=== PATIENT | female | born 1990 | race American Indian/Alaskan Native ===

== ENCOUNTER 2018-01-07 15:44 | Emergency (ER) | payer MEDICAID ==
[2018-01-07 15:56] VITALS: BP 121/71
[2018-01-07] MEDS ORDERED: ZOFRAN IV ONE (16:52)
[2018-01-07] MEDS ORDERED: TORADOL IV ONE (16:52)
[2018-01-07] MEDS ORDERED: PEPCID IV ONE (16:52)
[2018-01-07] MEDS ORDERED: NACL 0.9% 1000 ML 1,000 ML IV ONE (16:52)
--- NOTE | 2018-01-07 16:57 | Emergency Department Report ---
Blank Doc - Documentation Documentation: 27 yo female with no significant past medical history presents to the hospital complaining of nausea, vomiting, diarrhea since this morning as well as vaginal spotting for the past 2 weeks. Patient ate [place] food last night. She's vomited greater than 15 times today and had a great of 4 episodes of diarrhea. She denies melena, hematochezia, hematemesis, or fever. She complains of epigastric pain and lower abdominal pain. Patient also has significant complaint of pelvic pain and vaginal bleeding after sexual intercourse 2 weeks ago. Prior to the patient has not had sex in 2 years. Immediately after sex she had heavy vaginal bleeding that now has been persistently spotting. She has IUD 2 years (supposed to last for 5 years) and therefore does not typically have any periods. She denies vaginal discharge other than spotting generalized abd tenderness including suprapubic area labs/UA ordered us pelvic/transvag to verfy IUD placement meds ordered [facility] to evaluate
[2018-01-07 17:27] LABS: Basophils # (Auto) 0.1 K/mm3 (0.0-0.1); Basophils % (Auto) 1.3 % (0.0-1.8); Eosinophils # (Auto) 0.1 K/mm3 (0.0-0.4); Eosinophils % (Auto) 0.9 % (0.0-4.3); Hematocrit 35.2 % (30.3-42.9); Hemoglobin 11.1 gm/dl (10.1-14.3); Lymphocytes # (Auto) 1.8 K/mm3 (1.2-5.4); Lymphocytes % (Auto) 24.5 % (13.4-35.0); Mean Corpuscular HGB Conc 32 % (30-34); Mean Corpuscular Volume 81 fl (79-97); Monocytes # (Auto) 0.3 K/mm3 (0.0-0.8); Monocytes % (Auto) 4.1 % (0.0-7.3); Platelet Count 306 K/mm3 (140-440); Red Blood Count 4.33 M/mm3 (3.65-5.03); Red Cell Distribution Width 17.1 % (13.2-15.2)
[2018-01-07 17:29] LABS: Mean Corpuscular Hemoglobin 26 pg (28-32)
[2018-01-07 17:42] LABS: Alanine Aminotransferase 7 units/L (7-56); Albumin 4.1 g/dL (3.9-5); BUN/Creatinine Ratio 8; Blood Urea Nitrogen 4 mg/dL (7-17); Calcium 9.4 mg/dL (8.4-10.2); Hemolysis Index 38; Lipase 11 units/L (13-60)
[2018-01-07 18:02] LABS: Bilirubin,Urine NEG (Negative); Blood,Urine NEG (Negative); Color,Urine Yellow (Yellow); Mucus,Urine 3+ /HPF
--- NOTE | 2018-01-07 18:54 | Ultrasound Report ---
FINAL REPORT PROCEDURE: US PELVIC COMPLETE TECHNIQUE: Real-time transabdominal sonography in multiple planes of pelvis was performed with image documentation. This examination was performed without Doppler. Vascular abnormalities, including ovarian torsion, will not be detectable without Doppler evaluation. CPT 39697 HISTORY: vag spotting, pelvic pain, iud COMPARISON: No prior studies are available for comparison. FINDINGS: The uterus is anteverted measuring 7.3 x 3.8 x 5.6 centimeter. Echogenic linear foci is seen in the endometrial canal consistent with an IUD. Uterus is suboptimally visualized as the urinary bladder was empty. No definite uterine masses are seen. Right and left ovaries are visualized and show no focal abnormalities of the exception of a 1.6 centimeters cystic area in the right ovary suggesting a maturing follicle. The right ovary measures 3.2 x 2.5 x 2.5 centimeter. The left ovary measures 3.1 x 2.6 x 2.4 centimeters. IMPRESSION: Anteverted uterus. IUD visualized. No uterine masses are seen. Uterus is suboptimally seen as the urinary bladder was empty. Transvaginal scanning is to follow. Small follicle suspected right ovary. Ovaries are otherwise unremarkable.
--- NOTE | 2018-01-07 18:57 | Ultrasound Report ---
FINAL REPORT PROCEDURE: Transvaginal pelvic ultrasound with Doppler imaging. TECHNIQUE: Real-time transvaginal sonography in multiple planes of the pelvis was performed with image documentation. Grayscale, color flow Doppler imaging and velocity spectral waveform analysis of the ovaries was employed (duplex imaging). CPT 33926 and 72607 HISTORY: vag spotting, pelvic pain, iud COMPARISON: No prior studies are available for comparison. FINDINGS: Echogenic foci seen in the endometrial canal consistent with an IUD. Uterus is otherwise unremarkable measuring 7.3 x 3.8 x 5.6 centimeter. No uterine masses are identified. No fluid is seen in the endometrial canal or in the cul-de-sac. Visualized portions of the endometrial stripe measure up to 5.3 millimeter in thickness. Simple appearing cyst visualized in the right ovary measuring 1.9 centimeters suggesting a maturing follicle. The right and left ovaries otherwise are unremarkable. No abnormal adnexal masses are seen. Right ovary measures 3.2 x 2.5 x 2.5 centimeter. Left ovary measures 3.1 x 2.6 x 2.4 centimeters. Small peripheral follicles seen in the left ovary. Arterial flow demonstrated in both ovaries with Doppler imaging. Venous flow was not recorded. IMPRESSION: IUD visualized in the endometrial canal. Maturing dominant follicle visualize right ovary.. No other abnormalities are seen.
--- NOTE | 2018-01-07 18:58 | Emergency Department Report ---
Vomiting/Diarrhea - HPI Chief Complaint: Nausea/Vomiting/Diarrhea Stated Complaint: N&V & DIARRHEA Time Seen by Provider: 01/07/18 16:44 Duration: 2 weeks for vaginal spotting (for nausea and vomiting) Severity: moderate Nausea/Vomiting Severity: Moderate Diarrhea Severity: Mild Pain Location: Suprapubic Pain Severity: Mild Symptoms: Yes Able to Tolerate Fluids, No Watery Diarrhea, No Bloody diarrhea, No Fever, No Recent Unusual Foods, No Recent Untreated Water, No Recent use of Antibiotics, No Family w/ Similar Symptoms, No Contacts w/ Similar Symptoms, No Rash, No Hematuria, No Recent URI Symptoms Other History: This is a 27-year-old -[place] female that presents with nausea, vomiting, and diarrhea since this morning as well as vaginal spotting for the past 2 weeks. Patient ate [place] food last night and vomiting since. She reports vomiting and diarrhea more than 4 times. Patient states being abstinence for 1 year to have intercourse 2-3 weeks ago with ex-boyfriend and has an discomfort every since. Reports pain in lower abdomen and vaginal spotting. She is concerned her IUD was placed causing suprapubic pelvic pain. She has had IUD for 2 years without complication. Immediately after sex she had heavy vaginal bleeding that now has been persistently spotting. Denies melena, hematochezia, hematemesis, or fever. ED Review of Systems ROS: Stated complaint: N&V & DIARRHEA Other details as noted in HPI Constitutional: denies: chills, fever Respiratory: denies: cough, shortness of breath, wheezing Cardiovascular: denies: chest pain, palpitations Gastrointestinal: abdominal pain (suprapubic pain), nausea, vomiting, diarrhea Genitourinary: denies: urgency, dysuria, frequency, discharge Skin: denies: rash, lesions Neurological: denies: headache, weakness, paresthesias Psychiatric: denies: anxiety, depression ED Past Medical Hx - Past Medical History Hx Hypertension: No Hx Diabetes: No Hx Deep Vein Thrombosis: No Hx Renal Disease: No Hx Sickle Cell Disease: No Hx Seizures: No Hx Asthma: No Hx HIV: No - Surgical History Additional Surgical History: D&C - Social History Smoking Status: Never Smoker Substance Use Type: None - Medications Home Medications: Home Medications Medication Instructions Recorded Confirmed Last Taken Type HYDROcodone/APAP 5-325 [[place] 1 each PO Q6HR PRN #15 tablet 04/04/13 Unknown Rx 5/325 mg] Penicillin Vk [Veetids TAB] 500 mg PO QID #40 tablet 04/04/13 Unknown Rx Vits96/Iron Fum/Folic 1 tab PO DAILY 04/04/13 04/04/13 04/03/13 11:00 History [ Tablet] metroNIDAZOLE [Metronidazole] 500 mg PO BID 5 Days #10 tablet 01/07/18 Unknown Rx Vomiting Diarrhea Exam - Exam General: Vital signs noted. No distress. Alert and acting appropriately. HEENT: Yes Moist Mucous Membranes, No Pharyngeal Erythema, No Pharyngeal Exudates, No Rhinorrhea, No Conjuctival Injection, No Frontal Tenderness, No Maxillary Tenderness Neck: No Adenopathy, No Rigidity Lungs: Yes Clear Lung Sounds, Yes Good Air Exchange, No Wheezes, No Stridor, No Cough, No Nasal Flaring, No Retractions, No Use of Accessory Muscles Heart exam: Regular: Yes, Murmur: No, Tachycardia: No Abdomen: Tenderness: Yes (right lower quadrant and left lower quadrant tenderness, no rebound or rigidity), Peritoneal Signs: No, Distention: No, Hyperactive Bowel sounds: No Skin exam: Rash: No, Edema: No, Normal turgor: Yes Neurologic: Alert and oriented, no deficits. Musculoskeletal: Unremarkable. ED Course Vital Signs 01/07/18 01/07/18 01/07/18 15:52 16:42 17:22 Temperature 99.0 F Pulse Rate 89 Respiratory 16 18 18 Rate Blood Pressure 121/71 O2 Sat by Pulse 97 99 Oximetry ED Medical Decision Making - Lab Data Result diagrams: 01/07/18 17:04 01/07/18 17:04 - Radiology Data Radiology results: report reviewed PROCEDURE: US PELVIC COMPLETE TECHNIQUE: Real-time transabdominal sonography in multiple planes of pelvis was performed with image documentation. This examination was performed without Doppler. Vascular abnormalities, including ovarian torsion, will not be detectable without Doppler evaluation. CPT 33786 HISTORY: vag spotting, pelvic pain, iud COMPARISON: No prior studies are available for comparison. FINDINGS: The uterus is anteverted measuring 7.3 x 3.8 x 5.6 centimeter. Echogenic linear foci is seen in the endometrial canal consistent with an IUD. Uterus is suboptimally visualized as the urinary bladder was empty. No definite uterine masses are seen. Right and left ovaries are visualized and show no focal abnormalities of the exception of a 1.6 centimeters cystic area in the right ovary suggesting a maturing follicle. The right ovary measures 3.2 x 2.5 x 2.5 centimeter. The left ovary measures 3.1 x 2.6 x 2.4 centimeters. IMPRESSION: Anteverted uterus. IUD visualized. No uterine masses are seen. Uterus is suboptimally seen as the urinary bladder was empty. Transvaginal scanning is to follow. Small follicle suspected right ovary. Ovaries are otherwise unremarkable. - Medical Decision Making This is a 27-year-old -[place] female who presents with nausea, vomiting , and diarrhea since this morning as well as vaginal spotting for the past 2 weeks. Patient was examined by me and Dr. Nash. Vitals are normal. Patient cc of nausea. Given Zofran, Pepcid, Toradol, and 1 L normal saline bolus. Obtained CBC, CMP, lipase, hCG wall, urinalysis, and transvaginal and pelvic ultrasound. Negative hCG, trace leukocytes and WBCs are urinalysis, all of the labs unremarkable. Ultrasound read by radiologist and normal. Obtained a wet prep and GC via pelvic exam. Wet prep positive for clue cells and rare trichomonas, no yeast. Patient given metronidazole 2 mg by mouth and empirically treated with Rocephin 250 mg IM, and azithromycin 1 g by mouth. Discharged home in stable condition. Discussed prevention options. F/U with PCP or Health Department. Critical care attestation.: If time is entered above; I have spent that time in minutes in the direct care of this critically ill patient, excluding procedure time. ED Disposition Clinical Impression: Bacterial vaginosis, Trichomonas vaginalis infection, Possible exposure to STD , Nausea Abdominal pain Qualifiers: Abdominal location: generalized Qualified Code(s): R10.84 - Generalized abdominal pain Disposition: DC-01 TO HOME OR SELFCARE Is pt being admited?: No Does the pt Need Aspirin: No Condition: Stable Instructions: Bacterial Vaginosis (ED), Trichomoniasis (ED), Safe Sex (ED) Additional Instructions: Avoid drinking alcohol while taking antibiotics and for 24 hours after completion. Continue safe sexual intercourse. Follow up with Primary Care Provider or health department. Prescriptions: metroNIDAZOLE [Metronidazole] 500 mg PO BID 5 Days #10 tablet Referrals: PRIMARY CARE, [Primary Care Provider] - 3-5 Days Forms: STI Treatment and Prevention, Work/School Release Form(ED) Time of Disposition: 20:19 Print Language: CHINESE ED Female EXAM - General Limitations: No Limitations Female exam: Positive: vulvar erythema, vulvar tenderness, other (frothy malodorous white discharge). Negative: vaginal laceration, tissue present in vagina, herpetic lesions
[2018-01-07] MEDS ORDERED: ROCEPHIN IM ONE (20:16)
[2018-01-07] MEDS ORDERED: ZITHROMAX PO ONE (20:16)
[2018-01-07] MEDS ORDERED: FLAGYL PO ONE (20:17)
[2018-01-07] MEDS ORDERED: XYLOCAINE 1% MPF 5 mL INFILTRATI ONE (20:17)
== END 2018-01-07 20:45 | disposition home or self-care (01) ==
LOC: ED 15:44
DX: N76.0 Acute vaginitis (principal); R10.84 Generalized abdominal pain; B96.89 Other specified bacterial agents as the cause of diseases classified elsewhere; A59.01 Trichomonal vulvovaginitis; R11.0 Nausea
CPT/HCPCS: 36415; 76830; 76856; 80053; 81001; 83690; 84703; 85025; 87210; 87591; 96361; 96372; 96374; 96375; 99285; J0696; J1885; J2405; J7030

== ENCOUNTER 2019-03-22 19:09 | Emergency (ER) | payer SELFPAY ==
--- NOTE | 2019-03-22 19:17 | Event Note ---
ED Screening Note Date of service: 03/22/19 Time: 19:14 ED Screening Note: This is a 29 y.o. F. that presents to the ER with a headache for 4 days. Reports throbbing pain to frontal. Nonsmoker LMP implanted control Taking NSAIDs without relief. This initial assessment/diagnostic orders/clinical plan/treatment(s) is/are subject to change based on patients health status, clinical progression and re- assessment by fellow clinical providers in the ED. Further treatment and workup at subsequent clinical providers discretion. Patient/guardian urged not to elope from the ED as their condition may be serious if not clinically assessed and managed. Initial orders include: CT of head
[2019-03-22 19:18] VITALS: BP 125/82
--- NOTE | 2019-03-22 20:09 | Cat Scan Report ---
CT head without contrast CLINICAL HISTORY: Headaches FINDINGS: The brain appears to demonstrate appropriate attenuation. The ventricular system is within normal limits in size and configuration. There is no CT ends of acute intracranial hemorrhage or sign ificant mass effect. The visualized paranasal sinuses are clear. All CT scans at this location are pe rformed using the CT dose reduction for ALARA by means of automated exposure control. IMPRESSION: There is no CT evidence of acute intracranial process. Signer Name: Amari Morales MD Signed: 03/22/2019 8:05 PM Workstation Name: [id number]
[2019-03-22] MEDS ORDERED: FIORICET PO ONE (20:49)
[2019-03-22] MEDS ORDERED: TORADOL IM ONE (20:49)
[2019-03-22] MEDS ORDERED: ZOFRAN ODT PO ONE (20:49)
--- NOTE | 2019-03-22 21:53 | Emergency Department Report ---
ED General Adult HPI - General Chief complaint: Headache Stated complaint: HEADACHE X 4DAYS Time Seen by Provider: 03/22/19 19:14 Source: patient, family Mode of arrival: Ambulatory Limitations: No Limitations - History of Present Illness Initial comments: Patient is a 29-year-old -Spanish female with no past medical history who presents to the ED with cough and of acute onset persistent severe frontal sinus pressure, severe frontal headache, nasal and sinus congestion with nausea for the last 4 days. Patient states that she has been using [id number] medication with no relief. Patient denies dizziness, fevers, chills, vomiting, cough, sore throat, abdominal pain, syncope, change in vision, seizure, chest pain or shortness of breath or traumatic injury. MD Complaint: frontal headache; frontal pressure; nausea -: Sudden, days(s) (4) Location: head, face Radiation: non-radiation Severity scale (0 -10): 6 Quality: aching, sharp Consistency: constant Improves with: none Worsens with: none Associated Symptoms: denies other symptoms, cough, headaches, loss of appetite, nausea/vomiting. denies: confusion, chest pain, diaphoresis, fever/chills, malaise, rash, seizure, shortness of breath, syncope, weakness, other - Related Data Home Medications Medication Instructions Recorded Confirmed Last Taken Vits96/Iron Fum/Folic 1 tab PO DAILY 04/04/13 04/04/13 04/03/13 11:00 [ Tablet] Previous Rx's Medication Instructions Recorded Last Taken Type HYDROcodone/APAP 5-325 [[place] 1 each PO Q6HR PRN #15 tablet 04/04/13 Unknown Rx 5/325 mg] Penicillin Vk [Veetids TAB] 500 mg PO QID #40 tablet 04/04/13 Unknown Rx metroNIDAZOLE [Metronidazole] 500 mg PO BID 5 Days #10 tablet 01/07/18 Unknown Rx Amoxicillin [Trimox CAP] 500 mg PO Q8H #30 capsule 03/22/19 Unknown Rx Butalb/Acetamin/Caff 50-325-40 1 tab PO Q6HR PRN #15 tab 03/22/19 Unknown Rx [Fioricet 50-325-40] Ibuprofen [Motrin] 800 mg PO Q8HR PRN #20 tablet 03/22/19 Unknown Rx Ondansetron [Zofran Odt] 4 mg PO Q6HR PRN #15 tab.rapdis 03/22/19 Unknown Rx Allergies Allergy/AdvReac Type Severity Reaction Status Date / Time No Known Allergies Allergy Verified 03/22/19 21:00 ED Review of Systems ROS: Stated complaint: HEADACHE X 4DAYS Other details as noted in HPI Constitutional: denies: chills, fever Eyes: denies: eye pain, eye discharge, vision change ENT: throat pain, congestion, other (frontal sinus pressure). denies: ear pain Respiratory: denies: cough, shortness of breath, wheezing Cardiovascular: denies: chest pain, palpitations Endocrine: no symptoms reported Gastrointestinal: denies: abdominal pain, nausea, diarrhea Genitourinary: denies: urgency, dysuria, discharge Musculoskeletal: denies: back pain, joint swelling, arthralgia Skin: denies: rash, lesions Neurological: headache (frontal sinus ). denies: weakness, paresthesias Psychiatric: denies: anxiety, depression Hematological/Lymphatic: denies: easy bleeding, easy bruising ED Past Medical Hx - Past Medical History Previous Medical History?: Yes Hx Hypertension: No Hx Diabetes: No Hx Deep Vein Thrombosis: No Hx Renal Disease: No Hx Sickle Cell Disease: No Hx Seizures: No Hx Asthma: No Hx HIV: No Additional medical history: Anemia, DVT - Surgical History Past Surgical History?: Yes Additional Surgical History: D&C - Social History Smoking Status: Never Smoker Substance Use Type: None - Medications Home Medications: Home Medications Medication Instructions Recorded Confirmed Last Taken Type HYDROcodone/APAP 5-325 [[place] 1 each PO Q6HR PRN #15 tablet 04/04/13 Unknown Rx 5/325 mg] Penicillin Vk [Veetids TAB] 500 mg PO QID #40 tablet 04/04/13 Unknown Rx Vits96/Iron Fum/Folic 1 tab PO DAILY 04/04/13 04/04/13 04/03/13 11:00 History [ Tablet] metroNIDAZOLE [Metronidazole] 500 mg PO BID 5 Days #10 tablet 01/07/18 Unknown Rx Amoxicillin [Trimox CAP] 500 mg PO Q8H #30 capsule 03/22/19 Unknown Rx Butalb/Acetamin/Caff 50-325-40 1 tab PO Q6HR PRN #15 tab 03/22/19 Unknown Rx [Fioricet 50-325-40] Ibuprofen [Motrin] 800 mg PO Q8HR PRN #20 tablet 03/22/19 Unknown Rx Ondansetron [Zofran Odt] 4 mg PO Q6HR PRN #15 tab.rapdis 03/22/19 Unknown Rx ED Physical Exam - General Limitations: No Limitations General appearance: alert, in no apparent distress - Head Head exam: Present: atraumatic, normocephalic, normal inspection - Eye Eye exam: Present: normal appearance, PERRL, EOMI Pupils: Present: normal accommodation - ENT ENT exam: Present: mucous membranes moist, TM's normal bilaterally, normal external ear exam, other (Palpable frontal sinus tenderness; grossly congested nasal passages) - Neck Neck exam: Present: normal inspection, full ROM - Respiratory Respiratory exam: Present: normal lung sounds bilaterally. Absent: respiratory distress, wheezes, rales, chest wall tenderness, accessory muscle use, decreased breath sounds, prolonged expiratory - Cardiovascular Cardiovascular Exam: Present: regular rate, normal rhythm, normal heart sounds. Absent: systolic murmur, diastolic murmur, rubs, gallop - GI/Abdominal GI/Abdominal exam: Present: soft, normal bowel sounds - Extremities Exam Extremities exam: Present: normal inspection, full ROM, normal capillary refill - Back Exam Back exam: Present: normal inspection, full ROM. Absent: tenderness, CVA tenderness (R), CVA tenderness (L), muscle spasm, paraspinal tenderness, vertebral tenderness - Neurological Exam Neurological exam: Present: alert, oriented X3, CN II-XII intact, normal gait, reflexes normal - Psychiatric Psychiatric exam: Present: normal affect, normal mood - Skin Skin exam: Present: warm, dry, intact, normal color. Absent: rash ED Course Vital Signs 03/22/19 03/22/19 03/22/19 19:14 21:07 21:14 Temperature 98.4 F Pulse Rate 94 H Respiratory 14 18 18 Rate Blood Pressure 125/82 O2 Sat by Pulse 100 Oximetry - Reevaluation(s) Reevaluation #1: 03/22/19 21:56 This is a 29-year-old female who presented to the ED with persistent frontal sinus headache with pressure and nasal and sinus congestion for 4 days. In the ED, patient is alert and oriented 3 and is not in distress but appears been pain. The vital signs are stable. Patient was treated for pain in the ED and on reevaluation, patient's pain is well controlled with medications. Patient was discharged home on medications and advised to follow-up with her primary care physician in 5-7 days for reevaluation or return to the ED immediately if symptoms get worse. ED Medical Decision Making - Medical Decision Making This is a 29-year-old female who presented to the ED with persistent frontal sinus headache with pressure and nasal and sinus congestion for 4 days. In the ED, patient is alert and oriented 3 and is not in distress but appears been pain. The vital signs are stable. Patient was treated for pain in the ED and on reevaluation, patient's pain is well controlled with medications. Patient was discharged home on medications and advised to follow-up with her primary care physician in 5-7 days for reevaluation or return to the ED immediately if symptoms get worse. - Differential Diagnosis Migraine headache; sinus headache; acute sinusitis; acute URI Critical care attestation.: If time is entered above; I have spent that time in minutes in the direct care of this critically ill patient, excluding procedure time. ED Disposition Clinical Impression: Sinus headache Acute frontal sinusitis Qualifiers: Recurrence: non-recurrent Qualified Code(s): J01.10 - Acute frontal sinusitis, unspecified Disposition: TO HOME OR SELFCARE Is pt being admited?: No Does the pt Need Aspirin: No Condition: Stable Instructions: Acute Bacterial Rhinosinusitis (ED), Acute Headache (ED) Additional Instructions: Take medications with food, drink plenty of fluids and follow up with your primary care physician in 5-7 days for reevaluation. Return to the ED immediately if symptoms get worse. Prescriptions: Butalb/Acetamin/Caff 50-325-40 [Fioricet 50-325-40] 1 tab PO Q6HR PRN #15 tab PRN Reason: Headache Ibuprofen [Motrin] 800 mg PO Q8HR PRN #20 tablet PRN Reason: Pain , Severe (7-10) Amoxicillin [Trimox CAP] 500 mg PO Q8H #30 capsule Ondansetron [Zofran Odt] 4 mg PO Q6HR PRN #15 tab.rapdis PRN Reason: Nausea Referrals: PRIMARY CARE, [Primary Care Provider] - 3-5 Days Forms: Work/School Release Form(ED) Time of Disposition: 21:50 Print Language: ARABIC
== END 2019-03-22 22:15 | disposition home or self-care (01) ==
LOC: ED 19:09
DX: J01.10 Acute frontal sinusitis, unspecified (principal)
CPT/HCPCS: 70450; 96372; 99283; J1885; Q0162

== ENCOUNTER 2021-01-04 13:26 | Emergency (ER) | payer SELFPAY ==
--- NOTE | 2021-01-04 16:26 | Emergency Department Report ---
ED General Adult HPI - General Chief complaint: Nausea/Vomiting/Diarrhea Stated complaint: NAUSEA DIZZINESS Time Seen by Provider: 01/04/21 16:08 Source: patient Mode of arrival: Ambulatory Limitations: No Limitations - History of Present Illness Initial comments: Patient is a 30-year-old female presents emergency room complaints of "sinus issues" that began 3 to 4 days ago. She has associated sinus pressure, rhinorrhea, congestion, postnasal drip, sore throat. She states that today she was in the car and felt some car sickness and felt nauseous and dizzy. She denies any fever, vomiting, diarrhea, chest pain, shortness of breath, cough. No past medical history. No allergies medications. She states that she has been taking Sudafed with relief. - Related Data Home Medications Medication Instructions Recorded Confirmed Last Taken Vits96/Iron Fum/Folic 1 tab PO DAILY 04/04/13 04/04/13 04/03/13 11:00 [ Tablet] Previous Rx's Medication Instructions Recorded Last Taken Type HYDROcodone/APAP 5-325 [Crumpler 1 each PO Q6HR PRN #15 tablet 04/04/13 Unknown Rx 5/325 mg] Penicillin Vk [Veetids TAB] 500 mg PO QID #40 tablet 04/04/13 Unknown Rx metroNIDAZOLE [Metronidazole] 500 mg PO BID 5 Days #10 tablet 01/07/18 Unknown Rx Amoxicillin [Trimox CAP] 500 mg PO Q8H #30 capsule 03/22/19 Unknown Rx Butalb/Acetamin/Caff 50-325-40 1 tab PO Q6HR PRN #15 tab 03/22/19 Unknown Rx [Fioricet 50-325-40] Ibuprofen [Motrin] 800 mg PO Q8HR PRN #20 tablet 03/22/19 Unknown Rx Ondansetron [Zofran Odt] 4 mg PO Q6HR PRN #15 tab.rapdis 03/22/19 Unknown Rx Fluticasone [Flonase] 1 spray NS QDAY #1 bottle 01/04/21 Unknown Rx Meclizine [Antivert] 25 mg PO TID PRN #20 tablet 01/04/21 Unknown Rx Nystas/Diphen/Xyl Visc/Mylanta 30 ml MM Q4H PRN #300 ml 01/04/21 Unknown Rx [Magic Mouthwash] Allergies Allergy/AdvReac Type Severity Reaction Status Date / Time No Known Allergies Allergy Verified 01/04/21 14:00 ED Review of Systems ROS: Stated complaint: NAUSEA DIZZINESS Other details as noted in HPI Comment: All other systems reviewed and negative ED Past Medical Hx - Past Medical History Hx Hypertension: No Hx Diabetes: No Hx Deep Vein Thrombosis: No Hx Renal Disease: No Hx Sickle Cell Disease: No Hx Seizures: No Hx Asthma: No Hx HIV: No Additional medical history: Anemia, DVT - Surgical History Additional Surgical History: D&C - Social History Smoking Status: Never Smoker Substance Use Type: None - Medications Home Medications: Home Medications Medication Instructions Recorded Confirmed Last Taken Type HYDROcodone/APAP 5-325 [Crumpler 1 each PO Q6HR PRN #15 tablet 04/04/13 Unknown Rx 5/325 mg] Penicillin Vk [Veetids TAB] 500 mg PO QID #40 tablet 04/04/13 Unknown Rx Vits96/Iron Fum/Folic 1 tab PO DAILY 04/04/13 04/04/13 04/03/13 11:00 History [ Tablet] metroNIDAZOLE [Metronidazole] 500 mg PO BID 5 Days #10 tablet 01/07/18 Unknown Rx Amoxicillin [Trimox CAP] 500 mg PO Q8H #30 capsule 03/22/19 Unknown Rx Butalb/Acetamin/Caff 50-325-40 1 tab PO Q6HR PRN #15 tab 03/22/19 Unknown Rx [Fioricet 50-325-40] Ibuprofen [Motrin] 800 mg PO Q8HR PRN #20 tablet 03/22/19 Unknown Rx Ondansetron [Zofran Odt] 4 mg PO Q6HR PRN #15 tab.rapdis 03/22/19 Unknown Rx Fluticasone [Flonase] 1 spray NS QDAY #1 bottle 01/04/21 Unknown Rx Meclizine [Antivert] 25 mg PO TID PRN #20 tablet 01/04/21 Unknown Rx Nystas/Diphen/Xyl Visc/Mylanta 30 ml MM Q4H PRN #300 ml 01/04/21 Unknown Rx [Magic Mouthwash] ED Physical Exam - General Limitations: No Limitations General appearance: alert, in no apparent distress - Head Head exam: Present: atraumatic, normocephalic - Eye Eye exam: Present: normal appearance - ENT ENT exam: Present: normal orophraynx, mucous membranes moist, TM's normal bilaterally, normal external ear exam, other (no erythema or edema of the nasal turbinates, no purulent drainage) - Respiratory Respiratory exam: Present: normal lung sounds bilaterally. Absent: respiratory distress, wheezes, rales, rhonchi, stridor, chest wall tenderness, accessory muscle use, decreased breath sounds, prolonged expiratory - Cardiovascular Cardiovascular Exam: Present: regular rate, normal rhythm, normal heart sounds. Absent: systolic murmur, diastolic murmur, rubs, gallop - Neurological Exam Neurological exam: Present: alert, oriented X3 - Psychiatric Psychiatric exam: Present: normal affect, normal mood - Skin Skin exam: Present: warm, dry, intact ED Course Vital Signs 01/04/21 14:00 Temperature 98 F Pulse Rate 86 Respiratory 16 Rate Blood Pressure 124/84 [Left] O2 Sat by Pulse 100 Oximetry ED Medical Decision Making - Medical Decision Making Patient is a 30-year-old female presents emergency room complaints of "sinus issues" that began 3 to 4 days ago. She has associated sinus pressure, rhinorrhea, congestion, postnasal drip, sore throat. She states that today she was in the car and felt some car sickness and felt nauseous and dizzy. She denies any fever, vomiting, diarrhea, chest pain, shortness of breath, cough. No past medical history. No allergies medications. She states that she has been taking Sudafed with relief. Vitals are normal. On exam:no erythema or edema of the nasal turbinates, no purulent drainage, normal oropharynx, no tonsillar hypertrophy or exudates, no erythema, normal TMs and canals bilaterally. Symptoms likely related to viral URI. Patient given prescription for medications. Advised patient Please take medication as prescribed. Increase your fluid intake. Follow-up with your primary care doctor. Return to emergency room for any new or worsening symptoms or symptoms are persisting greater than 10 days. Please continue taking Sudafed. Critical care attestation.: If time is entered above; I have spent that time in minutes in the direct care of this critically ill patient, excluding procedure time. ED Disposition Clinical Impression: Sinus pressure, Sore throat Motion sickness Qualifiers: Encounter type: initial encounter Qualified Code(s): T75.3XXA - Motion sickness, initial encounter Disposition: TO HOME OR SELFCARE Is pt being admited?: No Does the pt Need Aspirin: No Condition: Stable Instructions: Upper Respiratory Infection, Adult, [id number] Additional Instructions: Please take medication as prescribed. Increase your fluid intake. Follow-up with your primary care doctor. Return to emergency room for any new or worsening symptoms or symptoms are persisting greater than 10 days. Please continue taking Sudafed. Prescriptions: Meclizine [Antivert] 25 mg PO TID PRN #20 tablet PRN Reason: Vertigo Fluticasone [Flonase] 1 spray NS QDAY #1 bottle Nystas/Diphen/Xyl Visc/Mylanta [Magic Mouthwash] 30 ml MM Q4H PRN #300 ml PRN Reason: sore throat Referrals: JACQUELINE ESQUIVEL MD [Staff Physician] - 3-[address] [facility] [Provider Group] - 3-5 Days Time of Disposition: 16:24 Print Language: SAO TOMEAN
== END 2021-01-04 16:23 | disposition home or self-care (01) ==
LOC: ED 13:26
CPT/HCPCS: 99281